=== PATIENT | male | born 1975 | race Two or more races ===

== ENCOUNTER 2016-09-10 04:35 | Emergency (ER) | payer OTHER ==
[~2016-09-10] VITALS: Ht 170.2 cm; Wt 61.2 kg
[2016-09-10 04:37] VITALS: BP 118/77
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
== END 2016-09-10 04:57 | disposition home or self-care (01) ==
LOC: ER 04:39
DX: Z53.21 Procedure and treatment not carried out due to patient leaving prior to being seen by health care provider (principal)

== ENCOUNTER 2016-09-10 05:20 | Emergency (ER) | payer OTHER ==
[~2016-09-10] VITALS: Ht 172.7 cm; Wt 72.6 kg
[2016-09-10] MEDS ORDERED: ACETAMINOPHEN ES 500 MG TABLET ONE (05:24)
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
[2016-09-10] MEDS ORDERED: ACETAMINOPHEN 325 MG TABLET PO ONE (05:30)
--- NOTE | 2016-09-10 05:55 | NUR ---
Patient does not wish to proceed with medical care recommended by Dr. SARAVIA. Patient given information related to possible complications, up to and including , which could occur as a result of leaving the hospital at this time. Patient verbalizes understanding of risks involved due to leaving against medical advice. Patient has refused to signed AMA form.
--- NOTE | 2016-09-10 05:57 | NUR ---
PT TOLD TO FOLLOW UP WITH [facility], PT STATES HE IS GOING BACK HOME TO [place] TODAY AND IS GOING TO FOLLOW UP WITH [facility]TH[facility] IN [place], MADE AWARE
[2016-09-10 05:58] VITALS: BP 130/81
== END 2016-09-10 05:59 | disposition home or self-care (01) ==
LOC: ER 05:22
DX: S63.054A Dislocation of other carpometacarpal joint of right hand, initial encounter (principal); S62.141A Displaced fracture of body of hamate [unciform] bone, right wrist, initial encounter for closed fracture; Z88.2 Allergy status to sulfonamides; Z88.1 Allergy status to other antibiotic agents; W22.01XA Walked into wall, initial encounter; Y93.89 Activity, other specified; Y92.89 Other specified places as the place of occurrence of the external cause; Y99.8 Other external cause status
CPT/HCPCS: 29125; 73130; 99284; A4606; Z7610